=== PATIENT | male | born 1995 ===

== ENCOUNTER 2017-07-21 14:47 | Outpatient (RCR) | payer BC ==
[~2017-07-21] VITALS: Ht 172.7 cm; Wt 86.0 kg
[2017-07-21 15:01] VITALS: BP 151/97
--- NOTE | 2017-07-21 23:17 | ONCOLOGY HISTORY AND PHYSICAL ---
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 CHIEF COMPLAINT Depression, anxiety, alcohol abuse. HISTORY OF PRESENT ILLNESS Jeb is a very pleasant 21-year-old gentleman who presents today at the request of Dr. Saeed to establish care for his history of testicular cancer. To review, the patient had undergone all of his care for testicular cancer at the [facility]. He had initially presented with a painful right testicular mass, and he underwent right inguinal orchiectomy in March of 2015. 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 There were foci of intratubular germ cell neoplasm also present. The tumor focally invaded the tunica albuginea, but not through it. Tivoli margins were free of tumor, and the spermatic cord resection margin was also negative. There were rare foci suspicious for a lymphovascular invasion present. The patient did have elevated tumor markers preoperatively, per the medical record that we received today. His tumor markers reportedly returned to normal post orchiectomy. Subsequent imaging reportedly revealed no evidence of metastatic disease or lymph node involvement. The patient then elected to undergo retroperitoneal lymph node dissection, and this was performed on June 04, 2015. All lymph nodes resected at the time of the RPLND were negative for tumor. A portion of the right spermatic cord was also excised, revealing no tumor. The patient has since been followed on and off, but he has not had formal oncologic followup since returning to [place]. He is currently a community college student, and he plans to go into [employer]. He plans to transfer his education to the [employer], eventually. After relating his oncology history to me today, the patient was very lambert in stating that he needs to talk to somebody about his ongoing alcohol abuse. He reports that he tends to drink 1.75 L of hard alcohol, roughly every week, and sometimes more. He does not drink wine or beer. There is no noted history of drug use. The patient reports that he drinks because he is depressed, and many times anxious. He admits to being anxious today. He has admittedly not looked very far into resources available to him here in [place]. He reports that somebody in his [employer] had reached out to his parents in [place] via Facebook and there is ongoing concern about his drinking. He states that he thinks that he is ready to start making active steps to quit drinking entirely. REVIEW OF SYSTEMS Otherwise negative, and all systems were reviewed. PAST MEDICAL HISTORY 1. Testicular cancer, as above. 2. Alcohol abuse. CURRENT MEDICATIONS None. ALLERGIES No known drug allergies. He reports being allergic to SHRIMP and SHELLFISH. SOCIAL HISTORY The patient reports drinking up to and at times beyond 1.75 L of hard alcohol per week. He does not check cigarettes. He does not give a history of illicit drug use. FAMILY HISTORY His mother and father are reportedly healthy. VITAL SIGNS Temperature is 97.2, blood pressure 151/97, pulse 102, respirations 16, oxygen saturation 96% on room air. Weight is 86 kg. PHYSICAL EXAMINATION GENERAL: Patient is alert and oriented times three, sitting in the exam room chair. He appears nervous, but is interactive and quite pleasant. HEENT: Exam reveals anicteric sclerae. NEUROLOGIC: Exam is grossly nonfocal and his gait is normal. EXTREMITIES: Exam reveals no edema, clubbing or cyanosis. SKIN: Exam reveals some scattered abrasions over his lower extremities, but no concerning rash or lesion. LABORATORY STUDIES Reviewed today per the [facility] record. His tumor markers are normal. IMAGING AND PATHOLOGY Please see history of present illness. ASSESSMENT AND PLAN 1. 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 I had a good visit with Jeb today. We discussed his history of testicular cancer, and the treatment that he has undergone to date. He underwent an initial right orchiectomy, which went well. He opted to undergo a subsequent retroperitoneal lymph node dissection in May of 2015, and all lymph nodes resected were negative. He has not had significant oncologic followup to date since returning to [place]. We spent time today reviewing NCCN guidelines for ongoing surveillance. Although guidelines would suggest that he could potentially follow up annually, given his concern for alcohol abuse, and his overall well-being, I would like to see him sooner, likely in six months. I will have him go for a chest x-ray today. We reviewed his follow-up labs, and his tumor markers are unremarkable. He understands that his prognosis from a testicular cancer standpoint is outstanding, likely with a cure rate in the range of 98% to 99%. 2. Alcohol abuse. I had a lambert discussion with Jeb today. He was quite open and honest about his alcohol use and his concern about it. He does seem to be ready to make a change. We discussed some resources that are available to him here in [place], and I will ask our group social worker to visit with him today about counseling, and to get him plugged in further with these resources. The patient was grateful for this information and for these recommendations. I spent a total of 45 minutes with the patient today, face to face. Forty minutes of this was spent in direct counseling and coordination of care. JEFRY
== END 2017-07-28 09:30 | disposition home or self-care (01) ==
LOC: ONC 14:47
PROVIDERS: ATTEND Internal Medicine Medical Oncology
DX: Z85.47 Personal history of malignant neoplasm of testis (principal); F10.10 Alcohol abuse, uncomplicated
CPT/HCPCS: 99202

== ENCOUNTER → 2017-07-28 | Outpatient (CLI) | payer BC ==
--- NOTE | 2017-07-28 16:20 | RADIOLOGY IMAGING REPORT ---
FACILITY: [facility] PATIENT NAME: Jeb Jaimes : 1995 MR: [id number] V: [id number] EXAM DATE: ORDERING PHYSICIAN: VIPUL MCCALLUM TECHNOLOGIST: Location: [facility] Patient: Jeb Jaimes : 1995 Visit/Account:[id number] Date of Sevice: 07/28/2017 Exam type: CHEST PA AND LAT History: History of testicular cancer Comparison: None. Findings: There are reticular nodular changes seen throughout the lungs. No evidence of pleural effusions or p ulmonary edema. Cardiac silhouette is normal in size. The trachea is midline. IMPRESSION: 1. Reticular nodular changes are seen throughout the lungs which could be chronic although compariso n with the previous study is recommended. If none are available short-term interval follow-up chest or chest CT may be helpful particularly given the clinical history Report Dictated By: Keira Arroyo MD at 07/28/2017 4:15 PM Report E-Signed By: Keira Arroyo MD at 07/28/2017 4:16 PM [id number]
== END ==
LOC: RAD 15:34
PROVIDERS: ATTEND Internal Medicine Medical Oncology
DX: R91.8 Other nonspecific abnormal finding of lung field (principal)
CPT/HCPCS: 71046

== ENCOUNTER 2017-08-03 07:37 | Outpatient (RCR) | payer BC ==
[2017-08-03 08:38] VITALS: BP 154/98
[2017-08-03] MEDS ORDERED: IOPAMIDOL 76% 75 ML INFUS BTL 75 ML ONE (09:39)
--- NOTE | 2017-08-03 16:20 | RADIOLOGY IMAGING REPORT ---
FACILITY: [facility] PATIENT NAME: Jeb Jaimes : 1995 MR: [id number] V: [id number] EXAM DATE: ORDERING PHYSICIAN: VIPUL MCCALLUM TECHNOLOGIST: Location: [facility] [place] Patient: Jeb Jaimes : 1995 Visit/Account:[id number] Date of Sevice: 08/03/2017 CHEST W W/O CONTRAST HISTORY: Restaging testicular cancer TECHNIQUE: CT chest with and without intravenous contrast. Contiguous helical images was performed f rom the lung apices to below the diaphragm. One of the following dose optimization techniques was utilized in the performance of this exam: Autom ated exposure control; adjustment of the mA and/or kV according to the patient's size; or use of an i terative reconstruction technique. Specific details can be referenced in the facility's radiology C T exam operational policy. CONTRAST: 75 cc of [id number] COMPARISON: None. FINDINGS: Heart/vessels: Negative. Mediastinum: Negative. Lymph nodes: Negative. Lungs/pleura: Negative. Visualized upper abdomen: Postoperative changes are noted from retroperitoneal lymph node dissection . No visualized pathologic adenopathy in the upper retroperitoneum. 1.4 cm benign cyst midpole right kidney is noted. Bones/soft tissues: Negative. IMPRESSION: 1. No evidence for metastatic disease to the chest. 2. Postoperative changes are noted from retroperitoneal lymph node dissection. Report Dictated By: Lazaro Aguirre MD at 08/03/2017 4:10 PM Report E-Signed By: Lazaro Aguirre MD at 08/03/2017 4:16 PM WSN:[id number]
== END 2017-09-01 15:34 | disposition home or self-care (01) ==
LOC: ONC 07:37
PROVIDERS: ATTEND Internal Medicine Medical Oncology
DX: C62.90 Malignant neoplasm of unspecified testis, unspecified whether descended or undescended (principal); R74.0 Nonspecific elevation of levels of transaminase and lactic acid dehydrogenase [LDH]
CPT/HCPCS: 71270; Q9967

== ENCOUNTER → 2017-11-29 | Outpatient (REF) | payer BC | LOC: ZZSENDIN 10:37 | PROVIDERS: ATTEND Family Medicine | DX: E20.1 Pseudohypoparathyroidism (principal) | CPT/HCPCS: 84100 ==